=== PATIENT | female | born 1935 | race Caucasian/White ===

== ENCOUNTER 2019-07-03 12:35 | Emergency (ER) | payer MEDICAID, MEDICARE ==
[2019-07-03 13:36] LABS: ALT (SGPT) 11 U/L (8-55); AST (SGOT) 18 U/L (5-34); Albumin 3.8 g/dL (3.4-4.8); Alkaline Phosphatase 94 U/L (40-110); Anion Gap 13 mmol/L (10-20); BUN (Urea Nitrogen) 32 mg/dL (9.8-20.1); Bilirubin, Total 0.4 mg/dL (0.2-1.2); Calc. Creatinine Clearance 0 mL/min (70-130); Calcium 8.7 mg/dL (7.8-10.44); Carbon Dioxide 25 mmol/L (23-31); Chloride 108 mmol/L (98-107); Estimated GFR-MDRD 56; Globulin 2.4 g/dL (2.4-3.5); Glucose 84 mg/dL (83-110); Potassium 4.4 mmol/L (3.5-5.1); Protein, Total 6.2 g/dL (6.0-8.3); Sodium 142 mmol/L (136-145)
[2019-07-03 13:50] LABS: #Eosinphils 0.1 thou/uL (0.0-0.7); #Lymphocytes 1.1 thou/uL (1.20-3.40); #Monocytes 0.4 thou/uL (0.11-0.59); #Neutrophils 1.4 thou/uL (1.40-6.50); %Basophils 0.8 % (0.0-1.0); %Eosinophils 2.2 % (0.0-10.0); %Lymphocytes 37.3 % (21.0-51.0); %Monocytes 12.1 % (0.0-10.0); %Neutrophils 47.7 % (42.0-75.0); Hemoglobin 11.8 g/dL (12.0-16.0); Mean Corpuscular HGB CONC 30.9 g/dL (32.0-36.0); Mean Corpuscular Hemoglobin 30.2 pg (27.0-31.0); Mean Corpuscular Volume 97.8 fL (78.0-98.0); Mean Platelet Volume 8.3 fL (7.4-10.4); Platelet Count 100 thou/uL (130-400); RBC Distribution Width 13.7 % (11.5-14.5)
[2019-07-03 13:52] LABS: Platelet Morphology Comment Appears Decreased
[2019-07-03 14:43] LABS: Bilirubin Negative (Negative); Blood, Urine Negative (Negative); Clarity Clear (Clear); Glucose, Urine (Dipstick) Negative (Negative); Leukocyte Negative (Negative); Nitrite Negative (Negative); Protein, Urine (Dipstick) Negative (Neg-Trace); Urobilinogen 0.2 mg/dL (Less than 2)
== END 2019-07-03 15:05 | disposition short-term general hospital (02) ==
LOC: BURERS 12:35
DX: I73.9 Peripheral vascular disease, unspecified (principal); I25.2 Old myocardial infarction; E78.5 Hyperlipidemia, unspecified; E78.00 Pure hypercholesterolemia, unspecified; I10 Essential (primary) hypertension; F41.9 Anxiety disorder, unspecified; F17.210 Nicotine dependence, cigarettes, uncomplicated; Z79.899 Other long term (current) drug therapy; Z86.718 Personal history of other venous thrombosis and embolism; Z79.82 Long term (current) use of aspirin
CPT/HCPCS: 36415; 80053; 81003; 83605; 83880; 85025; 85379; 87040; 99284

== ENCOUNTER 2020-12-28 15:31 | Emergency (ER) | payer MEDICARE | END 2020-12-28 16:50 | disposition home or self-care (01) | LOC: BURERS 15:31 | DX: S52.532A Colles' fracture of left radius, initial encounter for closed fracture (principal); S50.312A Abrasion of left elbow, initial encounter; E78.5 Hyperlipidemia, unspecified; E78.00 Pure hypercholesterolemia, unspecified; I10 Essential (primary) hypertension; Z86.718 Personal history of other venous thrombosis and embolism; F17.210 Nicotine dependence, cigarettes, uncomplicated; I25.2 Old myocardial infarction; Z79.82 Long term (current) use of aspirin; W19.XXXA Unspecified fall, initial encounter | CPT/HCPCS: 25605; 99283 ==